=== PATIENT | female | born 1960 | race African-American/Black ===

== ENCOUNTER 2017-08-12 07:04 | Day surgery (SDC) | payer OTHER ==
[2017-08-09 14:43] VITALS: BMI 25.7
[2017-08-12] MEDS ORDERED: LIDOCAINE HCL 2% (20ML MULTI-DOSE VIAL) NR ONE (07:48)
[2017-08-12] MEDS ORDERED: PROPOFOL 20 ML ONE ×2 (07:48)
[2017-08-12 08:33] VITALS: TEMP 97.7
[2017-08-12 09:48] VITALS: BP 129/63; PULSE 67
== END 2017-08-12 09:40 | disposition home or self-care (01) ==
LOC: JASU-ENDO 07:04
PROVIDERS: ATTEND Internal Medicine Gastroenterology
PROC: 0DJD8ZZ Inspection of Lower Intestinal Tract, Via Natural or Artificial Opening Endoscopic (ICD-10-PCS; principal; 2017-08-12 08:00)
DX: Z12.11 Encounter for screening for malignant neoplasm of colon (principal); Z86.010 Personal history of colon polyps; Z80.0 Family history of malignant neoplasm of digestive organs

== ENCOUNTER 2017-09-01 12:09 | Emergency (ER) | payer OTHER ==
[2017-09-01 12:17] VITALS: TEMP 98.7; BMI 25.7
--- NOTE | 2017-09-01 12:34 | PDOC ---
Attending Attestation - HPI HPI: 09/01/17 14:02 The patient is a 57 year old female, with a significant past medical history of hyperlipidemia, who presents to the emergency department with, lightheadedness. The patient reports waking up this morning feeling lightheaded and not well. Secondary to her symptoms, she reports a decreased PO intake. As per patient, two days ago she had 10 episodes of non-bloody diarrhea and abdominal cramping which has resolved. 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 She denies any recent travels. She denies recent fevers or chills. She denies recent constipation. She denies recent dysuria, frequency, urgency or hematuria. She denies recent chest pain or shortness of breath. Allergies: Pineapple Past surgical history: None reported. Social history: Nonsmoker. Denies EtOH use and recreational drug use. <Kishan Ivy - Last Filed: 09/01/17 14:02> - Resident Resident Name: Bella Quarles - ED Attending Attestation I have performed the following: I have examined & evaluated the patient, The case was reviewed & discussed with the resident, I agree w/resident's findings & plan, Exceptions are as noted - Physicial Exam PE: GENERAL: Awake, alert, and fully oriented, in no acute distress. Appears ill but nontoxic. HEAD: No signs of trauma EYES: PERRLA, EOMI, sclera anicteric, conjunctiva clear. Eyes appear sunken. ENT: Auricles normal inspection, hearing grossly normal, nares patent, oropharynx clear without exudates. Dry mucosa NECK: Normal ROM, supple, no lymphadenopathy, JVD, or masses LUNGS: Breath sounds equal, clear to auscultation bilaterally. No wheezes, and no crackles HEART: Tachycardic, regular rhythm, normal S1 and S2, no murmurs, rubs or gallops ABDOMEN: Soft, nontender, +hyperactive bowel sounds. No guarding, no rebound. No masses EXTREMITIES: Normal range of motion, no edema. No clubbing or cyanosis. No cords, erythema, or tenderness NEUROLOGICAL: Cranial nerves II through XII grossly intact. Normal speech, normal gait SKIN: Warm, Dry, normal turgor, no rashes or lesions noted. - Medical Decision Making 09/01/17 14:01 Pt with diarrhea on and off for past 3 days, presenting to ED stating she has had no appetite, poor PO intake, and feels ill overall. Appears dehydrated on exam, but also appears ill. Will send labs, UA, and obtain CT to further evaluate. <Stefani Wisdom - Last Filed: 09/01/17 14:24> Attestations - Attestations 09/01/17 14:03 Documentation prepared by Kishan Ivy, acting as anesthesiology medical doctor for Stefani Wisdom MD. <Kishan Ivy - Last Filed: 09/01/17 14:02>
--- NOTE | 2017-09-01 13:08 | PDOC ---
History of Present Illness - General Chief Complaint: Lightheaded Stated Complaint: LIGHTHEADED, BODYACHES Time Seen by Provider: 09/01/17 12:32 - History of Present Illness Initial Comments: 09/01/17 13:37 57 y.o. female with with a PMH of HLD presents to our ED today c/o acute onset of lightheadedness. Patient states she woke up this morning and felt lightheaded without any chest pain, shortness of breath or palpitations. Patient denies any vertiginous symptoms however does note she had 10 episodes of watery non-bloody diarrhea two days previous. Patient has been tolerating PO intake but notes decreased appetite. Patient denies any abdominal cramping, nausea/vomiting, recent travel or sick contacts. NKDA Surgical: none Social:denies cigarettes, denies alcohol, denies recreational drugs Past History - Past Medical History Allergies/Adverse Reactions: Allergies Allergy/AdvReac Type Severity Reaction Status Date / Time pineapple Allergy Verified 09/01/17 12:14 Home Medications: Ambulatory Orders NK [No Known Home Medication] 08/09/17 Anemia: Yes Asthma: No Cancer: No Cardiac Disorders: No CVA: No COPD: No CHF: No Dementia: No Diabetes: No GI Disorders: Yes (DIVERTICULOSIS) Disorders: No HTN: No Hypercholesterolemia: Yes (HYPERLIPIDEMIA) Liver Disease: No Seizures: No Thyroid Disease: No - Surgical History Abdominal Surgery: No Appendectomy: No Cardiac Surgery: No Cholecystectomy: No Lung Surgery: No Neurologic Surgery: No Orthopedic Surgery: No - Suicide/Smoking/Psychosocial Hx Smoking History: Never smoked Have you smoked in the past 12 months: No Information on smoking cessation initiated: No Hx Alcohol Use: Yes (SCOCIALLY) Drug/Substance Use Hx: No Substance Use Type: None Hx Substance Use Treatment: No Review of Systems - Review of Systems Comments:: 09/01/17 14:13 GENERAL/CONSTITUTIONAL: No fever or chills. No weakness. HEAD, EYES, EARS, NOSE AND THROAT: No change in vision. No ear pain or discharge. No sore throat. GASTROINTESTINAL: (+) nausea, (+) diarrhea, (-) vomiting GENITOURINARY: No dysuria, frequency, or change in urination. CARDIOVASCULAR: No chest pain or shortness of breath. RESPIRATORY: No cough, wheezing, or hemoptysis. MUSCULOSKELETAL: No joint or muscle swelling or pain. No neck or back pain. SKIN : No rash NEUROLOGIC: (+) lightheadedness, no headache, vertigo, loss of consciousness, or change in strength/sensation. ENDOCRINE: No increased thirst. No abnormal weight change. HEMATOLOGIC/LYMPHATIC: No anemia, easy bleeding, or history of blood clots ALLERGIC/IMMUNOLOGIC: No hives or skin allergy. *Physical Exam - Vital Signs Last Vital Signs Temp Pulse Resp BP Pulse Ox 98.7 F 111 H 18 133/79 100 09/01/17 12:16 09/01/17 12:16 09/01/17 12:16 09/01/17 12:16 09/01/17 12:16 - Physical Exam Comments: 09/01/17 14:15 GENERAL: Awake, alert HEAD: No signs of trauma EYES: PERRLA, EOMI, sclera anicteric, conjunctiva clear NECK: Normal ROM, supple, no lymphadenopathy, JVD, or masses LUNGS: Breath sounds equal, clear to auscultation bilaterally. No wheezes, and no crackles HEART: Regular rate and rhythm, normal S1 and S2, no murmurs, rubs or gallops ABDOMEN: Soft, mild LLQ tenderness on deep palpation, normoactive bowel sounds. No guarding, no rebound. No masses EXTREMITIES: Normal range of motion, no edema. No clubbing or cyanosis. 2+ peripheral pulses NEUROLOGICAL: slurred speech, cranial nerves grossly intact SKIN: Warm, Dry, normal turgor, no rashes or lesions noted. ED Treatment Course - LABORATORY CBC & Chemistry Diagram: 09/01/17 13:00 09/01/17 13:00 Medical Decision Making - Medical Decision Making 09/01/17 14:18 57 y.o. female who presents c/o acute onset lightheadedness following 10 episodes of watery, non-bloody diarrhea-- the latter 2 days previous. Will hydrate and obtain CT abdomen to r/o infectious cause as well as CBC, CMP. Reasess 09/01/17 15:39 CMP shows no acute electrolyte derangements. CT abdomen shows no diverticulitis , no colitis, no SBO. Patient improved s/p 2 L IVNS + Zofran. Patient ambulatory around unit, tolerating PO intake. Will discharge patient home with return precautions and instruction to f/u with PMD. I discussed the physical exam findings, ancillary test results and final diagnoses with the patient. I answered all of the patient's questions. The patient was satisfied with the care received and felt comfortable with the discharge plan and treatment plan. The patient will return to the Emergency Department with any new, persistent or worsening symptoms. *DC/Admit/Observation/Transfer Diagnosis at time of Disposition: Lightheadedness - Discharge Dispostion Disposition: HOME Condition at time of disposition: Good Admit: No - Referrals - Patient Instructions Printed Discharge Instructions: DI for Dehydration -- Adult Additional Instructions: You were evaluated today for lightheadedness. All of your labs and your cat scan showed no concerning findings. Please follow up with your primary care doctor in the next 48 hours. Return to the Emergency Department for any new/ worsening/concerning symptoms. - Post Discharge Activity
[2017-09-01] MEDS ORDERED: SODIUM CHLORIDE 0.9% 500 ML INFUS.BAG IV ONE (13:09)
[2017-09-01 13:25] LABS: BASO % 0.3 % (0-2.0); EOS % 0.6 % (0-4.5); HEMATOCRIT 36.6 % (32.4-45.2); HEMOGLOBIN 12.4 GM/dL (10.7-15.3); LYMPH % 5.9 % (8-40); MCH 27.8 pg (25.7-33.7); MEAN PLT VOLUME 9.4 fl (7.5-11.1); MONO % 10.6 % (3.8-10.2); NEUT % 82.6 % (42.8-82.8); PLATELET COUNT 152 K/MM3 (134-434); RBC 4.47 M/mm3 (3.60-5.2); RDW 13.2 % (11.6-15.6); WHITE BLOOD COUNT 4.2 K/mm3 (4.0-10.0)
[2017-09-01 13:46] LABS: ALBUMIN 3.8 g/dl (3.4-5.0); ALK PHOS 93 U/L (45-117); ANION GAP 12 (8-16); BILIRUBIN,TOTAL 1.3 mg/dL (0.2-1.0); BLOOD UREA NITROGEN 10 mg/dL (7-18); CALCIUM 9.1 mg/dL (8.5-10.1); CHLORIDE 102 mmol/L (98-107); CO2 26 mmol/L (21-32); CREATININE 0.9 mg/dL (0.55-1.02); GLUCOSE,RANDOM 92 mg/dL (74-106); POTASSIUM 3.9 mmol/L (3.5-5.1); SGOT/AST 18 U/L (15-37); SGPT/ALT 22 U/L (12-78); SODIUM 140 mmol/L (136-145); TOT PROT 7.8 g/dl (6.4-8.2)
[2017-09-01] MEDS ORDERED: SODIUM CHLORIDE 1,000 ML IV STA (13:58)
[2017-09-01] MEDS ORDERED: ONDANSETRON 4 MG/2 ML VIAL IVPUSH ONE (14:03)
[2017-09-01] MEDS ORDERED: ONDANSETRON 4 MG/2 ML VIAL ONE (14:08)
[2017-09-01 15:56] VITALS: BP 133/78; PULSE 87
--- NOTE | 2017-09-02 10:46 | EKG ---
Test Reason : Blood Pressure : / mmHG Vent. Rate : 080 BPM Atrial Rate : 080 BPM P-R Int : 152 ms QRS Dur : 080 ms QT Int : 354 ms P-R-T Axes : 074 033 -05 degrees QTc Int : 408 ms NORMAL SINUS RHYTHM NONSPECIFIC T WAVE ABNORMALITY ABNORMAL ECG NO PREVIOUS ECGS AVAILABLE Confirmed by PIEDAD CH MD ([id number]) on 09/02/2017 10:46:02 AM Referred By: Confirmed By:PIEDAD CH MD
== END 2017-09-01 15:55 | disposition home or self-care (01) ==
LOC: JER 12:09
PROC: 3E033GC Introduction of Other Therapeutic Substance into Peripheral Vein, Percutaneous Approach (ICD-10-PCS; principal; 2017-09-01)
PROC: 3E0337Z Introduction of Electrolytic and Water Balance Substance into Peripheral Vein, Percutaneous Approach (ICD-10-PCS; 2017-09-01)
DX: R42 Dizziness and giddiness (principal); I10 Essential (primary) hypertension; E78.5 Hyperlipidemia, unspecified
CPT/HCPCS: 36415; 74176-TC; 80053; 84703; 85025; 93005; 93010; 99283-25